=== PATIENT | male | born 1945 | race Caucasian/White ===

== ENCOUNTER → 2017-07-11 | Day surgery (SDC) | payer OTHER ==
[~2017-07-11] VITALS: Ht 167.6 cm; Wt 79.4 kg
[~2017-07-11] MED LIST: *ONDANSETRON 4 MG VIAL PERIprocedural Use ONLY ONE; *RESP: ALBUTEROL 2.5 MG/3 ML NEB (PRN) PERIprocedural Use ONLY NEB ONE; AMLO10TA2 PO; ATOR40TA16 PO; BELLADONNA ALKALOIDS/OPIUM 60 MG SUPP RECTAL ONE; CARV6.252 PO; CHLORHEXIDINE GLUCONATE 2 % 1 PACK (2 CLOTHS) TOPICAL PRN; DEXAMETHASONE SOD PHOS 4 MG/ML VIAL IV ONE; DO NOT ADM ANY ANTICOAGULANT DRUGS PRN; DULA0.5I SQ; ECASA81 PO; FURO40TA PO; GLYCOPYRROLATE 1 MG/5 ML SYRINGE IV PUSH ONE; INSU1.2I SQ; KETOROLAC TROMETHAMINE 30 MG/ML (IVP) VIAL IV PUSH ONE; KETOROLAC TROMETHAMINE 30 MG/ML (IVP) VIAL ONE; LACTATED RINGER'S 1000 ML INJ 1,000 ML IV ONE; LACTATED RINGER'S 1000 ML IV PRN; LIDOCAINE HCL 1% PF 5 ML SYRINGE OTHER ONE; METOPROLOL TARTRATE 25 MG TAB PO PRN; MIDAZOLAM HCL 2 MG/2 ML VIAL ONE; NALOXONE HCL 0.4 MG/ML AMP ONE; NEOSTIGMINE 5 MG/5 ML SYRINGE IV PUSH ONE; NITR1CAP36 PO; ONDANSETRON HCL 4 MG/2 ML VIAL IV ONE; ONDANSETRON HCL 4 MG/2 ML VIAL ONE; POTA-255 PO; POVIDONE IODINE 5% (ANTISEPSIS KIT) 4 APPLICATIONS EACH NARE PRN; PROPOFOL 200 MG/20 ML AMP IV ONE; ROCURONIUM INJ 50 MG/5 ML SYRINGE IV PUSH ONE; SODIUM CHLORID 0.9% 500 ML IV PRN; TAMS0.4C4 PO; VALS1TAB70 PO; VITA100018 PO; ceFAZolin 2 GM PREMIX 50 ML IV SCH
[2017-07-11 11:42] LABS: INTERNATIONAL NORMALIZED RATIO 1.1 RATIO; PROTHROMBIN TIME - PATIENT 11.2 SEC (9.8-11.6)
--- NOTE | 2017-07-11 13:47 | EKG ---
Date Performed: 07/11/2017 Time Performed: 11:03:29 PTAGE: 72 years EKG: Baseline artifact present Sinus rhythm WITH FIRST DEGREE AV BLOCK ANTEROSEPTAL MYOCARDIAL INFARCTION , PROBABLY RECENT ACUTE WI NO PREVIOUS TRACING DOCTOR: Luis Armando Bill Interpretating Date/Time 07/11/2017 13:46:01
[2017-07-11 16:19] VITALS: BP 139/58; PULSE 74; RESP 18; TEMP 98.3; O2SAT 97
--- NOTE | 2017-07-12 12:41 | MP ---
cc: ANITRA FARIA MD DATE OF SURGERY: 07/11/2017 PREOPERATIVE DIAGNOSIS: 1. Benign prostatic hypertrophy with Karval refractory to medical therapy. POSTOPERATIVE DIAGNOSIS: 1. Benign prostatic hypertrophy with Karval refractory to medical therapy. 2. Bulbomembranous urethral stricture. SURGEON: Dawood. ANESTHESIA General COMPLICATIONS None. PREOPERATIVE ANTIBIOTICS: Ancef 2 grams IV DRAINS: 22-Indian Denson catheter to gravity drainage SPECIMENS None BLOOD LOSS Minimal DISPOSITION To recovery INDICATIONS The patient is a 72-year-old male with history of benign prostatic hypertrophy with severe lutz. He has tried multiple medications including, alpha blockers, anticholinergics, but he has had persistent bothersome symptoms. Treatment options were discussed including the urolith, versus TURP versus green light photo vaporization of the prostate. The risks, benefits and alternatives, complications, each one were discussed including, risk erectile dysfunction, urinary incontinence. He would like to proceed with green light photo vaporization of prostate. PROCEDURE IN DETAIL The patient is properly identified, brought back to the cystoscopy suite, was placed supine on cystoscopy table. A time-out was performed under anesthesiology the patient and induced under general aesthetic, preoperative antibiotics in the form of Ancef 2 grams, IV given one hour before start of the procedure. The patient then placed in dorsolithotomy position, properly prepped, draped in normal surgical fashion. a 23-Indian sheath with visual obturator I attempted to carefully passed the resectoscope into the patient's bladder. However, I came across a very soft bulbomembranous urethral stricture. Oddly enough he had never had previous a urological surgery or history of STDs. I tried to passively dilated with the 23-Indian sheath and visual obturator but was unsuccessful. I then removed the resectoscope then switched out to regular cystoscope with 22-Indian sheath at this point I was a able to carefully pass the cystoscope with 22 Indian sheath through the softly into the patient's bladder then carefully removed the cystoscope. I did second attempt at the resectoscope, using the visual obturator and this time was able to move my way through the stricture at the patients bladder, the bladder was then drained. The working bridge with less delivery lens was then carefully inserted the bladder was inspected appeared to be moderately trabeculated. Both orifices were given normal anatomical location. There is no history of bladder tumor stones or diverticula. I then retracted the scope back into the prostatic fossa. The patient did not have a median lobe and he had mild lateral lobe hypertrophy with approximately 3 cm long prostate. Using the Moxy fiber I was then able to vaporize the prostate adenoma from the bladder neck to the verumontanum between the 1-5 and the 1-11 o'clock positions. This vastly opened up his prostatic channel. There was minimal bleeding seen. Once the visualized adenoma was vaporized the bladder was then drained. A second look was then inspected. There is no evidence any bleeding at this time a 22-Indian three-way catheter was then inserted and the bladder was drained. The patient was extubated, taken to recovery in stable condition to be discharged home with the Denson catheter in place. She does well overnight will have home health care and remove the catheter in the morning. We will then follow up in 7-10 days. MD ISHAN Rasheed/tsering /1:59 PM /12:19 PM
== END | disposition home or self-care (01) ==
LOC: HSDC 10:27
PROVIDERS: ATTEND Urology
DX: N40.1 Benign prostatic hyperplasia with lower urinary tract symptoms (principal); N35.9 Urethral stricture, unspecified; I10 Essential (primary) hypertension; E11.9 Type 2 diabetes mellitus without complications; Z79.4 Long term (current) use of insulin
CPT/HCPCS: 00914; 52648; 82948; 85610; 93005; C1769; J0690; J1100; J1885; J2250; J2310; J2405; J2710; J3010; J7120; J7613; 94664